=== PATIENT | male | born 1955 | race Caucasian/White ===

== ENCOUNTER → 2016-10-30 | Outpatient (CLI) | payer BC ==
[~2016-10-30] VITALS: Ht 167.6 cm; Wt 61.4 kg
[2016-10-30] VITALS (9 sets, daily range): BP systolic 138–163; BP diastolic 74–83; PULSE 71–92
[~2016-10-30] MED LIST: ADVIL200 MG PO; AMBIEN 10MG10 MG PO; AMBIEN 5MG TABLE5 MG PO; COMPAZINE 110 MG/TAB PO; DECADRON 4MG TAB4 MG PO; DILAUDID 2MG TAB2 MG PO; EFFEXOR XR75 MG/CAP PO; FENTANYL 25 MCG TD; FOLBIC 2 MG-2.51 TAB PO; MIRALAX PA17 GM/Dose PO; OXYCONTIN 20MG20 MG PO; PREDNISONE20 MG PO; PRILOSEC 20MG20 MG PO; PROTONIX 40MG T40 MG PO; ROXANOL 20MG20 MG/ML SL; SENNA-LAX8.6 MG PO; TYLENOL 500MG500 MG PO; ULTRAM 50MG TAB50 MG PO; VALIUM 5MG T5 MG/TAB PO; ZOFRAN8 MG PO
== END ==
LOC: COL.RAD 12:30
DX: C79.51 Secondary malignant neoplasm of bone (principal)
CPT/HCPCS: J2250; J3010

== ENCOUNTER 2016-11-14 08:55 | Outpatient (CLI) | payer BC ==
[~2016-11-14] VITALS: Ht 167.6 cm; Wt 59.1 kg
[2016-11-14] VITALS (13 sets, daily range): BP systolic 131–159; BP diastolic 63–85; PULSE 68–88
[~2016-11-14 08:55] MED LIST changes: -AMBIEN 10MG10 MG PO; -AMBIEN 5MG TABLE5 MG PO; -COMPAZINE 110 MG/TAB PO; -DECADRON 4MG TAB4 MG PO; -DILAUDID 2MG TAB2 MG PO; -EFFEXOR XR75 MG/CAP PO; -FENTANYL 25 MCG TD; -FOLBIC 2 MG-2.51 TAB PO; -OXYCONTIN 20MG20 MG PO; -ROXANOL 20MG20 MG/ML SL; -SENNA-LAX8.6 MG PO; -TYLENOL 500MG500 MG PO; -VALIUM 5MG T5 MG/TAB PO; -ZOFRAN8 MG PO
[2016-11-14] MEDS ORDERED: DECADRON 4MG TAB4 MG PO (09:24)
[2016-11-14] MEDS ORDERED: FOLBIC 2 MG-2.51 TAB PO (09:25)
[2016-11-14] MEDS ORDERED: TYLENOL 500MG500 MG PO (09:25)
[2016-11-14] MEDS ORDERED: AMBIEN 10MG10 MG PO (09:26)
== END 2016-11-14 12:21 | disposition home or self-care (01) ==
LOC: COL.RAD 08:55
DX: C34.11 Malignant neoplasm of upper lobe, right bronchus or lung (principal)
CPT/HCPCS: J2250; J3010

== ENCOUNTER 2017-01-05 19:54 | Emergency (ER) | payer BC ==
[~2017-01-05] VITALS: Ht 170.2 cm; Wt 55.9 kg
[~2017-01-05 19:54] MED LIST changes: +AMBIEN 10MG10 MG PO; +DECADRON 4MG TAB4 MG PO; +FOLBIC 2 MG-2.51 TAB PO; +TYLENOL 500MG500 MG PO
[2017-01-05 19:55] VITALS: TEMP 98.1
[2017-01-05 20:47] VITALS: BP 108/63; PULSE 87
== END 2017-01-05 20:48 | disposition home or self-care (01) ==
LOC: COL.ER 19:54
DX: M54.5 Low back pain (principal)
CPT/HCPCS: J1170; J3360

== ENCOUNTER → 2017-01-24 | Outpatient (CLI) | payer BC ==
[~2017-01-24] MED LIST changes: +AMBIEN 5MG TABLE5 MG PO; +COMPAZINE 110 MG/TAB PO; +DILAUDID 2MG TAB2 MG PO; +EFFEXOR XR75 MG/CAP PO; +FENTANYL 25 MCG TD; +OXYCONTIN 20MG20 MG PO; +ROXANOL 20MG20 MG/ML SL; +SENNA-LAX8.6 MG PO; +VALIUM 5MG T5 MG/TAB PO; +ZOFRAN8 MG PO
== END ==
LOC: COL.RAD 08:30
DX: C34.11 Malignant neoplasm of upper lobe, right bronchus or lung (principal); C78.7 Secondary malignant neoplasm of liver and intrahepatic bile duct; R59.0 Localized enlarged lymph nodes; R93.7 Abnormal findings on diagnostic imaging of other parts of musculoskeletal system
CPT/HCPCS: Q9967

== ENCOUNTER 2017-01-27 21:07 | Inpatient (IN) | payer BC ==
[~2017-01-27] VITALS: Ht 170.2 cm; Wt 53.7 kg
[~2017-01-27 21:07] MED LIST changes: -AMBIEN 5MG TABLE5 MG PO; -COMPAZINE 110 MG/TAB PO; -DILAUDID 2MG TAB2 MG PO; -EFFEXOR XR75 MG/CAP PO; -FENTANYL 25 MCG TD; -OXYCONTIN 20MG20 MG PO; -ROXANOL 20MG20 MG/ML SL; -SENNA-LAX8.6 MG PO; -VALIUM 5MG T5 MG/TAB PO; -ZOFRAN8 MG PO
[2017-01-27] MEDS ORDERED: AMBIEN 5MG TABLE5 MG PO (21:18)
[2017-01-27] MEDS ORDERED: EFFEXOR XR75 MG/CAP PO (21:23)
[2017-01-27] MEDS ORDERED: SENNA-LAX8.6 MG PO (21:23)
[2017-01-27] MEDS ORDERED: VALIUM 5MG T5 MG/TAB PO (21:24)
[2017-01-27] MEDS ORDERED: COMPAZINE 110 MG/TAB PO (21:24)
[2017-01-27] MEDS ORDERED: DILAUDID 2MG TAB2 MG PO (21:25)
[2017-01-27] MEDS ORDERED: ZOFRAN8 MG PO (21:25)
[2017-01-27 22:41] LABS: MEAN CELL VOLUME 95 fl (80.0-100.0); MEAN CORPUSCULAR HGB CONC 30 g/dl (33.0-37.0); MEAN PLATELET VOLUME 9.5 fl (7.4-10.4); PLATELET COUNT 503 K/mm3 (130-400); RED BLOOD COUNT 3.15 M/mm3 (4.20-5.60); REDCELL DISTRIBUTION WIDTH-CV 16.5 % (11.5-14.5)
[2017-01-27 22:52] LABS: ADJUSTED CALCIUM 9.5 mg/dL (8.4-10.2); ALANINE AMINOTRANSFERASE 92 U/L (21-72); ALBUMIN 2.9 gm/dL (3.5-5.0); ALKALINE PHOSPHATASE 206 U/L (50-136); ANION GAP 8 mmol/L (7-16); BILIRUBIN,TOTAL 0.8 mg/dL (0.0-1.0); BLOOD UREA NITROGEN 13 mg/dL (9-20); CALCIUM 8.6 mg/dL (8.4-10.2); CARBON DIOXIDE 30 mmol/L (22-30); CHLORIDE 100 mmol/L (98-107); CREATININE, serum 0.67 mg/dL (0.66-1.25); GLUCOSE 92 mg/dL (74-106); LIPASE 14 U/L (23-300); POTASSIUM 3.9 mmol/L (3.4-5.0); SODIUM 137 mmol/L (137-145); TOTAL PROTEIN 6.4 gm/dL (6.4-8.2)
[2017-01-27 23:06] LABS: HEMATOCRIT 29.9 % (42.0-52.0); MEAN CORPUSCULAR HEMOGLOBIN 29 pg (27.0-31.0); WHITE BLOOD COUNT 28.9 K/mm3 (4.8-10.8)
[2017-01-27 23:07] LABS: ADD PATHOLOGY DIFF REVIEW NO
[2017-01-27 23:15] LABS: AMYLASE < 30 U/L (30-110)
[2017-01-28] VITALS (8 sets, daily range): BP systolic 121–154; BP diastolic 53–74; PULSE 80–99; TEMP 97.9–98.4
[2017-01-28 00:12] LABS: BAND 8 % (0-10); EOSINOPHIL 2 % (0-4); METAMYELOCYTE 1 % (0-0); NEUTROPHILS 82 % (42.0-75.2); PLATELET ESTIMATE INCREASED (NORMAL); TOTAL CELLS COUNTED 100
[2017-01-28 00:13] LABS: HYPOCHROMIA 2+; STOMATOCYTE 1+
[2017-01-28 00:15] LABS: ANISOCYTOSIS 1+; TOXIC GRANULATION PRESENT
[2017-01-28 02:00] LABS: PH 7 (5-8); SQUAMOUS EPITHELIAL None Seen /hpf; URINE APPEARANCE Clear; URINE BACTERIA None Seen /hpf; URINE BILIRUBIN Negative (NEGATIVE); URINE BLOOD Negative (NEGATIVE); URINE COLOR Yellow; URINE GLUCOSE Negative (NEGATIVE); URINE KETONE Negative (NEGATIVE); URINE RBC 0-2 /hpf; URINE UROBILINOGEN Negative (NEGATIVE); URINE WBC 0-2 /hpf
[2017-01-28] MEDS ORDERED: FENTANYL 25 MCG TD (02:02)
[2017-01-28 07:31] LABS: BASO % 0.1 % (0.0-2.0); EOS # 0.9 (0.0-0.7); GRAN # 24.4 (1.4-6.5); LYMPH # 1.3 (1.2-3.4); LYMPH % 4.2 % (20.0-51.0); MEAN CELL VOLUME 96 fl (80.0-100.0); MEAN CORPUSCULAR HGB CONC 30 g/dl (33.0-37.0); MEAN PLATELET VOLUME 9.7 fl (7.4-10.4); MONO # 2.3 (0.1-0.6); MONO % 7.6 % (1.7-9.3); PLATELET COUNT 493 K/mm3 (130-400); RED BLOOD COUNT 3.24 M/mm3 (4.20-5.60); REDCELL DISTRIBUTION WIDTH-CV 16.5 % (11.5-14.5)
[2017-01-28 07:45] LABS: CALCIUM 8.5 mg/dL (8.4-10.2); CREATININE, serum 0.69 mg/dL (0.66-1.25); POTASSIUM 3.9 mmol/L (3.4-5.0)
[2017-01-28 08:20] LABS: HEMATOCRIT 31.1 % (42.0-52.0); HEMOGLOBIN 9.3 g/dl (13.5-18.0); MEAN CORPUSCULAR HEMOGLOBIN 29 pg (27.0-31.0); WHITE BLOOD COUNT 29.5 K/mm3 (4.8-10.8)
[2017-01-29 00:17] VITALS: BP 148/59; PULSE 103; TEMP 97.1
[2017-01-29 04:11] VITALS: BP 142/63; PULSE 98; TEMP 97.8
[2017-01-29 07:52] LABS: ADD PATHOLOGY DIFF REVIEW NO
[2017-01-29 07:54] LABS: MEAN CELL VOLUME 95 fl (80.0-100.0); MEAN CORPUSCULAR HGB CONC 30 g/dl (33.0-37.0); MEAN PLATELET VOLUME 9.5 fl (7.4-10.4); PLATELET COUNT 443 K/mm3 (130-400); RED BLOOD COUNT 3.32 M/mm3 (4.20-5.60); REDCELL DISTRIBUTION WIDTH-CV 16.6 % (11.5-14.5)
[2017-01-29 08:19] LABS: CALCIUM 8.3 mg/dL (8.4-10.2); CREATININE, serum 0.65 mg/dL (0.66-1.25); MAGNESIUM 1.9 mg/dL (1.6-2.3); POTASSIUM 3.9 mmol/L (3.4-5.0)
[2017-01-29 08:24] LABS: HEMATOCRIT 31.5 % (42.0-52.0); HEMOGLOBIN 9.4 g/dl (13.5-18.0); MEAN CORPUSCULAR HEMOGLOBIN 28 pg (27.0-31.0); WHITE BLOOD COUNT 27.1 K/mm3 (4.8-10.8)
[2017-01-29 09:50] VITALS: BP 147/60; PULSE 99; TEMP 99.1
[2017-01-29 12:07] VITALS: BP 162/76; PULSE 102; TEMP 98.1
[2017-01-29 12:19] LABS: BAND 6 % (0-10); BASOPHIL 1 % (0-2); EOSINOPHIL 1 % (0-4); NEUTROPHILS 86 % (42.0-75.2); TOTAL CELLS COUNTED 100
[2017-01-29 16:30] VITALS: BP 156/77; PULSE 90; TEMP 98.6
[2017-01-29 19:33] VITALS: BP 156/76; PULSE 90; TEMP 98.5
[2017-01-30 00:54] VITALS: BP 152/70; PULSE 99; TEMP 98.9
[2017-01-30 03:18] VITALS: BP 136/60; PULSE 93; TEMP 98.4
[2017-01-30 07:48] VITALS: BP 133/72; PULSE 84; TEMP 98.7
[2017-01-30 08:10] LABS: ADD PATHOLOGY DIFF REVIEW NO
[2017-01-30 08:17] LABS: MEAN CELL VOLUME 93 fl (80.0-100.0); MEAN CORPUSCULAR HGB CONC 31 g/dl (33.0-37.0); MEAN PLATELET VOLUME 9.6 fl (7.4-10.4); PLATELET COUNT 437 K/mm3 (130-400); RED BLOOD COUNT 3.04 M/mm3 (4.20-5.60); REDCELL DISTRIBUTION WIDTH-CV 16.7 % (11.5-14.5)
[2017-01-30 08:30] LABS: CALCIUM 7.9 mg/dL (8.4-10.2); CREATININE, serum 0.6 mg/dL (0.66-1.25); HEMATOCRIT 28.2 % (42.0-52.0); HEMOGLOBIN 8.6 g/dl (13.5-18.0); MAGNESIUM 1.8 mg/dL (1.6-2.3); MEAN CORPUSCULAR HEMOGLOBIN 28 pg (27.0-31.0); POTASSIUM 3.3 mmol/L (3.4-5.0)
[2017-01-30 11:59] VITALS: BP 121/74; PULSE 73; TEMP 98.3
[2017-01-30 12:22] LABS: BAND 6 % (0-10); EOSINOPHIL 3 % (0-4); NEUTROPHILS 78 % (42.0-75.2); TOTAL CELLS COUNTED 100
[2017-01-30 12:24] LABS: ANISOCYTOSIS 1+; PLATELET ESTIMATE INCREASED (NORMAL)
[2017-01-30] MEDS ORDERED: ROXANOL 20MG20 MG/ML SL (13:48)
[2017-01-30] MEDS ORDERED: OXYCONTIN 20MG20 MG PO (13:48)
== END 2017-01-30 17:45 | disposition home or self-care (01) | DRG 640 ==
LOC: COL.ER 21:07 → MEDICAL 01-28 00:09
PROVIDERS: Emergency Medicine; Internal Medicine; Nurse Practitioner Family
DX: E86.0 Dehydration (principal); E43 Unspecified severe protein-calorie malnutrition; C34.11 Malignant neoplasm of upper lobe, right bronchus or lung; C78.7 Secondary malignant neoplasm of liver and intrahepatic bile duct; C79.51 Secondary malignant neoplasm of bone; C78.6 Secondary malignant neoplasm of retroperitoneum and peritoneum; Z68.1 Body mass index [BMI] 19.9 or less, adult; K59.03 Drug induced constipation; T40.2X5A Adverse effect of other opioids, initial encounter; F17.210 Nicotine dependence, cigarettes, uncomplicated
CPT/HCPCS: 99223-AI; 99232-AI; 99239; J0692; J1170; J2212; J2543; J2765; J3010; J7030; J7050; J7512; Q9967